=== PATIENT | female | born 1990 | race Caucasian/White ===

== ENCOUNTER 2016-04-07 18:31 | Emergency (ER) | payer SELFPAY ==
[2016-04-07] MEDS ORDERED: SULFAMETHOXAZOLE/TRIMETHOPRIM 1 TAB TABLET PO ONE (21:26)
[2016-04-07] MEDS ORDERED: oxyCODONE HCL/ACETAMINOPHEN 1 TAB TABLET PO ONE (21:28)
[2016-04-07] MEDS ORDERED: SULFAMETHOXAZOLE/TRIMETHOPRIM 1 TAB TABLET ONE (21:33)
[2016-04-07] MEDS ORDERED: oxyCODONE HCL/ACETAMINOPHEN 1 TAB TABLET ONE (21:33)
[2016-04-07 21:36] VITALS: BP 130/78
--- NOTE | 2016-04-07 21:48 | ERNOTE ---
Integumentary HPI - Narrative Date of Service: 04/07/16 - General Presenting Symptoms: abscess Time Seen by Provider: 04/07/16 21:11 Source: patient Exam Limitations: no limitations - Immun/Allergies/Home Medications Immunizations: IMMUNIZATION HX Immunizations Up to Date No History of Influenza Vaccine No Hx Pneumococcal Vaccination No Allergies/Adverse Reactions: Allergies Allergy/AdvReac Type Severity Reaction Status Date / Time adhesive Allergy Verified 04/07/16 20:13 Home Medications: HOME MEDICATIONS Multivitamin [Multiple Vitamins] 1 each PO DAILY 02/03/12 [Last Taken Unknown] Sulfamethoxazole/Trimethoprim [Bactrim Ds] 1 tab PO BID #28 tab 04/07/16 [Last Taken Unknown] oxyCODONE HCL/ACETAMINOPHEN [Percocet 5 MG/325 MG] 1 tab PO Q4H PRN #20 tab [Last Taken Unknown] - History of Present Illness Narrative: Pt. comes in with c/o Painful bump on her L flank that she noticed yesterday and thought that it was just a zit so her mom "popped" it and expressed purulent material and blood from the wound. Pt. denies any other prehospital treatment. Review of Systems - Review of Systems Constitutional: Present: no symptoms reported. Absent: recent illness, fever, chills, fatigue, malaise EYE: Present: no symptoms reported ENT: Present: no symptoms reported Respiratory: Present: no symptoms reported. Absent: shortness of breath, cough , wheezing Cardiology: Present: no symptoms reported. Absent: chest pain, palpitations, edema Gastrointestinal/Abdominal: Present: no symptoms reported. Absent: nausea, vomiting, diarrhea Genitourinary: Present: no symptoms reported Musculoskeletal: Present: no symptoms reported. Absent: back pain, joint pain Skin: Present: lumps - red painful lump Neurological: Present: no symptoms reported. Absent: headache, dizziness/light- headedness, numbness, tingling All Other Systems: All systems neg except as marked - Patient's Past Medical History Patient History - Medical: Migraines Patient History - Cardiac/Respiratory: No pertinent hx Patient History - Cancer: Ovarian Patient History - Surgical Procedures: T & A, Other Patient History - Other: None LMP (Calendar): 03/13/16 - Family History Mother Family History - Cardiac/Respiratory: Hypertension - Social History Living Situations: home Smoking Status: Current every day smoker Alcohol Use: occasionally Drug Use: none - Immunizations Immunizations Up to Date: No Hx Pneumococcal Vaccination: No History of Influenza Vaccine: No Physical Exam - Physical Exam General Appearance: Present: wd/wn, alert, no apparent distress Eye Exam: Normal inspection: bilateral, PERRL: bilateral, EOMI: bilateral Ears, Nose, Throat: Present: normal ENT inspection, hearing grossly normal, normal pharynx Neck: Present: normal inspection, nontender. Absent: lymphadenopathy (R), lymphadenopathy (L) Respiratory: Present: no respiratory distress, normal breath sounds, no accessory muscle use, chest nontender, lungs clear Cardiovascular/Chest: Present: regular rate, rhythm, no murmur, normal peripheral pulses Gastrointestinal/Abdominal: Present: normal bowel sounds, nontender, nondistended, soft, no organomegaly Back Exam: Present: normal inspection, normal range of motion, no CVA tenderness , no vertebral tenderness Extremity Exam: Present: normal inspection, non-tender, no edema, normal range of motion Neurological Exam: Present: alert, oriented, normal mood/affect, no motor/ sensory deficits Skin Exam: Present: normal color, warm/dry, other - abscess decompressed on R flank 0.5cm in diameter with 3cm of cellulitis surrounding. ED Progress - Date and Time Seen: Date and Time: 04/07/16 21:46 As abscess is already decompressed will treat cellulitis and educated pt. on followin g up to ensure that it does not return or worsen. - Vital Signs Patient's Vital Signs:: I have reviewed the patient's vital signs. Vital Signs: Vital Signs 04/07/16 20:08 Temperature 36.4 C L Pulse Rate 59 L Respiratory 18 Rate Blood Pressure 136/80 O2 Sat by Pulse 100 Oximetry - Progress/Reassessment Chief Complaint: Abscess Departure Clinical Impression: Abscess Cellulitis Qualifiers: Site of cellulitis: trunk Site of cellulitis of trunk: back Qualified Code(s): L03.312 - Cellulitis of back [any part except buttock] - Departure Disposition: Home self-care Condition: Good Instructions: Abscess, [id number], Cellulitis, Adult, [id number] Additional Instructions: Please follow up with primary provider in 2-3 days. Prescriptions: Sulfamethoxazole/Trimethoprim [Bactrim Ds] 1 tab PO BID #28 tab oxyCODONE HCL/ACETAMINOPHEN [Percocet 5 MG/325 MG] 1 tab PO Q4H PRN #20 tab PRN Reason: Pain
== END 2016-04-07 22:08 | disposition home or self-care (01) ==
LOC: ER 18:31
DX: L02.211 Cutaneous abscess of abdominal wall (principal); L03.312 Cellulitis of back [any part except buttock and flank]

== ENCOUNTER 2016-06-12 23:31 | Emergency (ER) | payer SELFPAY ==
[2016-06-13 00:14] VITALS: BP 113/68
[2016-06-13] MEDS ORDERED: ONDANSETRON 4 MG TAB.RAPDIS PO ONE (00:21)
[2016-06-13] MEDS ORDERED: KETOROLAC TROMETHAMINE 60 MG/2 ML VIAL IM ONE ×2 (00:22→00:26)
--- NOTE | 2016-06-13 00:25 | ERNOTE ---
Headache ER HPI - General Presenting Symptoms: headache Time Seen by Provider: 06/13/16 00:18 Source: patient Exam Limitations: no limitations - Immun/Allergies/Home Medications Immunizations: IMMUNIZATION HX Immunizations Up to Date Yes History of Influenza Vaccine Yes Hx Pneumococcal Vaccination No Allergies/Adverse Reactions: Allergies adhesive Allergy (Verified 06/13/16 00:14) Home Medications: HOME MEDICATIONS Multivitamin [Multiple Vitamins] 1 each PO DAILY 02/03/12 [Last Taken Unknown] Sulfamethoxazole/Trimethoprim [Bactrim Ds] 1 tab PO BID #28 tab 04/07/16 [Last Taken Unknown] oxyCODONE HCL/ACETAMINOPHEN [Percocet 5 MG/325 MG] 1 tab PO Q4H PRN #20 tab [Last Taken Unknown] - History of Present Illness Narrative: here for typical frontal headache and out of her meds. Admits to some photophobia and no vomiting but some nausea, Has no neck pain Review of Systems - Review of Systems Constitutional: Present: no symptoms reported EYE: Present: other - photophobia ENT: Present: no symptoms reported Respiratory: Present: no symptoms reported Cardiology: Present: no symptoms reported Gastrointestinal/Abdominal: Present: no symptoms reported Musculoskeletal: Present: no symptoms reported Neurological: Present: headache - bilateral, not worse ever. typical "migraine" - Patient's Past Medical History Patient History - Medical: Migraines Patient History - Cardiac/Respiratory: No pertinent hx Patient History - Cancer: Ovarian Patient History - Surgical Procedures: T & A, Other Patient History - Other: None LMP (Calendar): 03/13/16 - Family History Mother Family History - Cardiac/Respiratory: Hypertension - Social History Living Situations: home Abuse History: No History of abuse Psych History: No pertinent hx Smoking Status: Current every day smoker Patient requests Smoking Cessation Consult: No Initiate information on Smoking Cessation: No Alcohol Use: occasionally Drug Use: none - Immunizations Immunizations Up to Date: Yes Hx Pneumococcal Vaccination: No History of Influenza Vaccine: Yes Physical Exam - Physical Exam General Appearance: Present: wd/wn, alert, no apparent distress Eye Exam: Normal inspection: bilateral - photophobic but normal exam Ears, Nose, Throat: Present: normal ENT inspection Neck: Present: normal inspection, nontender, supple, full range of motion Respiratory: Present: no respiratory distress, normal breath sounds, no accessory muscle use, chest nontender, lungs clear Cardiovascular/Chest: Present: regular rate, rhythm, no murmur, normal peripheral pulses Back Exam: Present: normal inspection ED Progress - Vital Signs Patient's Vital Signs:: I have reviewed the patient's vital signs. Vital Signs: Vital Signs 06/13/16 00:10 Temperature 36.4 C L Pulse Rate 78 Respiratory 18 Rate Blood Pressure 113/68 O2 Sat by Pulse 97 Oximetry - Progress/Reassessment Chief Complaint: Headache Plan - Plan Plan: pt has a tension type headache since it is bilateral Departure Clinical Impression: Tension headache - Departure Disposition: Home self-care Condition: Good Instructions: Tension Headache, [id number]
[2016-06-13] MEDS ORDERED: ONDANSETRON 4 MG TAB.RAPDIS ONE (00:27)
--- OUTSIDE RECORDS SUMMARY | 2016-06-13 00:30 | XMS REPORT | Continuity of Care Document ---
:1990 Author Organization [facility] ([facility]) Address [address] [place] [address] Phone [phone] Care Team Providers Name Role Phone Provider, No-Primary Care Primary Care Provider Unavailable Source Comments This disclosure is being made pursuant to the Care Everywhere program, applicable federal and state laws, and may not contain all informaitonavailable regarding this patient.[facility] ([facility]) Active Allergies and Adverse Reactions Allergen Noted Date Severity Reactions Comments Adhesive 11/04/2011 Rash Current Medications No known medications Active Problems Problem Noted Date Encounter for follow-up surveillance of ovarian cancer 02/15/2016 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 Resolved Problems Problem Noted Date Resolved Date Groin pain 02/04/2012 08/15/2015 Ovarian mass 11/06/2011 02/15/2016 Social History Tobacco Use Types Packs/Day Years Used Date Current Every Day Smoker Cigarettes 0.25 5 Smokeless Tobacco: Never Used Tobacco Cessation:Ready to Quit: No Comments: Alcohol Use Drinks/Week oz/Week Comments Yes not often Last Filed Vital Signs Vital Sign Reading Time Taken Blood Pressure 109/69 02/13/2016 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 Pulse 70 02/13/2016 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 Temperature 36.8 C (98.2 F) 02/13/2016 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 Respiratory Rate 16 02/13/2016 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 Height 1.7 m (5' 6.93") 08/15/2015 2:05 PM CDT Weight 110.75 kg (244 lb 2.6 oz) 02/13/2016 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 Body Mass Index 38.32 02/13/2016 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 Oxygen Saturation 97% 02/13/2016 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 Plan of Care Date Type Specialty Providers Description 08/13/2016 Appointment [facility] FrostJ[facility] MD [address] [place] [phone] (Fax) Chief Comp: Patient Clinic, [facility] Provider Reported Reason For Visit Health Maintenance Due Date Last Done Comments Hepatitis B Vaccine (1 of 3 - Primary 1988 Series) Tdap Vaccine 11/22/1999 Lipid Disorder Screening 2006 MMR Vaccine 2006 Td Vaccine 2006 Varicella Vaccine (1 of 2 - Adult - No 2006 Evidence of Immunity) Pneumococcal Vaccine (1 of 3 - PCV13) 11/22/2007 Influenza Vaccine: Seasonal (#1) 10/08/2015 Cervical Cancer Screening 05/02/2016 05/02/2013, 04/27/2012 Results from Last 3 Months Not on file
== END 2016-06-13 00:30 | disposition home or self-care (01) ==
LOC: ER 23:31
DX: G44.209 Tension-type headache, unspecified, not intractable (principal); F17.210 Nicotine dependence, cigarettes, uncomplicated

== ENCOUNTER 2017-06-08 06:02 | Observation (INO) ==
[2017-06-08] MEDS ORDERED: DIATRIZOATE MEGLUMINE, SODIUM 30 ML BTL PO ONE (06:20)
[2017-06-08] MEDS ORDERED: ONDANSETRON HCL/PF 2 MG/ML VIAL IV ONE ×3 (06:20→16:41)
[2017-06-08] MEDS ORDERED: KETOROLAC TROMETHAMINE 30 MG/ML VIAL IV ONE (06:20)
[2017-06-08] MEDS ORDERED: KETOROLAC TROMETHAMINE 30 MG/ML VIAL ONE (06:21)
[2017-06-08] MEDS ORDERED: ONDANSETRON HCL/PF 2 MG/ML VIAL ONE (06:21)
[2017-06-08] MEDS ORDERED: DIATRIZOATE MEGLUMINE, SODIUM 30 ML BTL ONE (06:21)
--- NOTE | 2017-06-08 06:24 | ERNOTE ---
<Zohreh Bone - Last Filed: 06/08/17 07:53> Abdominal HPI - General Time Seen by Provider: 06/08/17 06:05 Source: patient - Immun/Allergies/Home Medications Immunizatons: IMMUNIZATION HX Immunizations Up to Date Yes History of Influenza Vaccine Yes Hx Pneumococcal Vaccination No Allergies/Adverse Reactions: Allergies adhesive Allergy (Verified 06/13/16 00:14) Home Medications: HOME MEDICATIONS NK [No Home Medication] 06/08/17 [Last Taken Unknown] - History of Present Illness Narrative: Patient started last night to have mid to right lower abdominal pain, vomiting and subjective fever. Pain is worse wit movement and breathing. She has a history of right ovarian cancer treated with surgery only in 2011, still has her appendix. Date (Duration): 06/07/17 Time (Timing): 18:00 Timing: constant, getting worse Quality: severe, sharpness Activities at Onset: none Modifying Factors - (Worsens): Present: breathing, movement Associated Symptoms: Present: nausea, vomiting. Absent: shortness of breath Prior Abdominal Problems: Present: none Prior Treatment: Absent: recently seen, currently on antibiotics Review of Systems - Review of Systems Constitutional: Present: fever - subjective, chills. Absent: recent illness ENT: Absent: nose congestion, nasal drainage, sore throat Respiratory: Absent: shortness of breath Cardiology: Absent: chest pain Gastrointestinal/Abdominal: Present: See HPI, nausea, vomiting, constipation, abdominal pain. Absent: diarrhea Genitourinary: Present: no symptoms reported. Absent: frequency, dysuria Skin: Absent: rash Neurological: Absent: headache - Patient's Past Medical History Patient History - Medical: Migraines Patient History - Cardiac/Respiratory: No pertinent hx Patient History - Cancer: Ovarian Patient History - Surgical Procedures: Cancer Surgery, T & A, Other Patient History - Other: None - Family History Mother Family History - Cardiac/Respiratory: Hypertension Grandmother-Maternal Family History - Medical: No pertinent hx Family History - Cardiac/Respiratory: No pertinent hx Family History - Cancer: No pertinent family hx - Social History Abuse History: No History of abuse Psych History: No pertinent hx Smoking Status: Never smoker Alcohol Use: none Drug Use: none - Immunizations Immunizations Up to Date: Yes Hx Pneumococcal Vaccination: No History of Influenza Vaccine: Yes Physical Exam - Physical Exam General Appearance: Present: wd/wn, alert, mild distress, anxious Respiratory: Present: no respiratory distress, normal breath sounds, no accessory muscle use, lungs clear Cardiovascular/Chest: Present: regular rate, rhythm, no murmur Gastrointestinal/Abdominal: Present: normal bowel sounds, nondistended, soft, tenderness - RLQ, guarding, McBurney sign, Obturator sign, Psoas sign Neurological Exam: Present: alert, oriented, normal mood/affect Skin Exam: Present: normal color, warm/dry ED Progress - Results and Orders Patient's Lab Results:: I have reviewed the patient's lab results. - Vital Signs Patient's Vital Signs:: I have reviewed the patient's vital signs. - Progress/Reassessment Progress Note-Subjective: 06/08/17 06:50 pain improved and tolerable, tolerating contrast - Transfer of Care Physician Sign Out: Zohreh Bone Receiving Physician: Antonio Wagner Pending Results: CT/MRI results Departure Clinical Impression: Appendicitis - Departure Disposition: Still a patient Condition: Good <Antonio Wagner - Last Filed: 06/08/17 09:40> Abdominal HPI - Immun/Allergies/Home Medications Immunizatons: IMMUNIZATION HX Immunizations Up to Date Yes History of Influenza Vaccine Yes Hx Pneumococcal Vaccination No ED Progress - Date and Time Seen: Date and Time: 06/08/17 09:38 condition unchanged, case discussed with dr araujo who evaluates patient for admission with acute appendicitis, to be admitted - Results and Orders Patient's Lab Results:: I have reviewed the patient's lab results. - Vital Signs Patient's Vital Signs:: I have reviewed the patient's vital signs. Vital Signs: Vital Signs 06/08/17 06/08/17 06/08/17 06:10 06:18 06:45 Temperature 36.7 C 36.7 C 36.5 C Pulse Rate 90 90 66 Respiratory 16 16 18 Rate Blood Pressure 125/69 125/69 112/75 O2 Sat by Pulse 100 100 98 Oximetry - CT/Ultrasound CT/Ultrasound Narrative: ct abdomen acute appendicitis - Transfer of Care Expected Disposition: Admit
[2017-06-08 06:32] LABS: Hematocrit 41.5 % (37.0-47.0); Hemoglobin 14.1 gm/dL (12.5-16.0); Mean Cell Volume 88.9 fl (78-100); Mean Corpuscular Hemoglobin 30.2 pg (27-31); Neutrophil # 12.9 K/mm3 (1.3-6.0); Neutrophil % 80.5 % (42-75.0); Platelet Count 275 K/mm3 (150-450); Red Blood Count 4.67 M/mm3 (4.2-5.4); Red Cell Distribution Width 12.2 % (11.5-14.0)
[2017-06-08 06:46] LABS: Albumin * 3.8 gm/dl (3.4-5.0); Anion Gap 12.5 mmol/L (6.8-13.8); BUN/Creatinine Ratio 13.9 (9.0-21.6); Bilirubin, Total 0.6 mg/dL (0.0-1.1); Ca. Corrected For Albumin 8.6 mg/dL (8.4-10.2); Calcium * 8.8 mg/dL (7.9-10.9); Carbon Dioxide 28.6 mmol/L (24-32.6); Potassium 4.1 mmol/L (3.4-4.6); Total Protein 7.2 gm/dL (6.2-8.2)
[2017-06-08 08:44] LABS: Urine Bilirubin Negative (NEGATIVE); Urine Blood Negative /ul (NEGATIVE); Urine Ketone Negative (NEGATIVE); Urine Nitrite Negative (NEGATIVE); Urine Protein Negative (NEGATIVE); Urine Urobilinogen Normal (NORMAL)
[2017-06-08 08:58] LABS: Urine Appearance Clear (CLEAR); Urine Color Yellow; Urine RBC None Seen /hpf (0-5); Urine WBC None Seen /hpf (0-5)
[2017-06-08 08:59] LABS: Urine Bacteria 1+
[2017-06-08] MEDS ORDERED: ceFAZolin SODIUM/DEXTROSE,ISO 2 GM/50 ML BAG IV ONE (09:44)
[2017-06-08] MEDS ORDERED: LEVOFLOXACIN IN DEXTROSE 5 % 750 MG/150 ML BAG IV ONE (09:45)
[2017-06-08] MEDS ORDERED: metroNIDAZOLE/SODIUM CHLORIDE 500 MG/100 ML BAG IV SCH ×3 (09:45→19:00)
[2017-06-08] MEDS: RINGER'S SOLUTION,LACTATED 1,000 ML IV PRN ×2 (10:31→17:03)
--- NOTE | 2017-06-08 10:55 | HP ---
Chief Complaint - Chief Complaint Date of Service: 06/08/17 Time of Service: 10:50 Chief Complaint: RLQ abdominal pain History of Present Illness: Pt presented to ER with onset of RLQ abdominal pain at 6P last night that was associated with significant vomiting. ER FUNEZ shows WBC of 16K and CT c/w uncomplicated acute appendicitis. - Patient's Past Medical History Patient History - Medical: Migraines Patient History - Cardiac/Respiratory: No pertinent hx Patient History - Cancer: Ovarian Patient History - Surgical Procedures: Cancer Surgery, T & A, Other Patient History - Other: None LMP (females 10-50): unknown - Family History Grandmother-Maternal Family History - Medical: No pertinent hx Family History - Cardiac/Respiratory: No pertinent hx Family History - Cancer: No pertinent family hx Mother Family History - Medical: No pertinent hx Family History - Cardiac/Respiratory: Hypertension Family History - Cancer: No pertinent family hx - Social History Living Situations: parents Abuse History: No History of abuse Psych History: No pertinent hx Smoking Status: Never smoker Have you smoked in the past 12 months: Yes Do you dip or chew tobacco: No Patient requests Smoking Cessation Consult: No Initiate information on Smoking Cessation: No Alcohol Use: none Drug Use: none - Immunizations Immunizations Up to Date: Yes Hx Pneumococcal Vaccination: No History of Influenza Vaccine: Yes Review Of Systems (GEN) - Review of Systems Abdominal: Present: Vomiting Misc: All systems neg except as marked Immunizations: IMMUNIZATION HX Immunizations Up to Date Yes History of Influenza Vaccine Yes Hx Pneumococcal Vaccination No Allergies/Adverse Reactions: Allergies Allergy/AdvReac Type Severity Reaction Status Date / Time adhesive Allergy Verified 06/13/16 00:14 Home Medications: HOME MEDICATIONS NK [No Home Medication] 06/08/17 [Last Taken Unknown] Exam - Exam Vital Signs: Vital Signs - Last Taken Temp 36.6 C 06/08/17 07:30 Pulse 77 06/08/17 07:30 Resp 18 06/08/17 06:45 BP 121/69 06/08/17 07:30 Pulse Ox 97 06/08/17 07:30 Constitutional: Present: Alert, Oriented x3, Cooperative, Well developed, Well nourished, No distress ENT Exam: Present: normal ENT inspection Eye Exam: bilateral eye: normal inspection Neck: Present: non-tender, full range of motion, trachea midline. Absent: lymphadenopathy (R), lymphadenopathy (L) Respiratory: Present: normal breath sounds, no respiratory distress, no accessory muscle use Cardiovascular/Chest: Present: regular rate, rhythm, no murmur Abdomen: Present: Normal bowel sounds, tender - RLQ Extremity: Present: normal inspection Skin Exam: Present: normal color, warm/dry Neurologic: Present: no motor/sensory deficits Appearance: Present: appropriate appearance, appropriate insight Eye contact: Present: cooperative, good eye contact Thoughts: Present: normal thought pattern Diagnostic Studies: Abnormal Lab Results 06/08/17 06/08/17 Range/Units 06:25 07:57 WBC 16.0 H (4.0-10.5) K/mm3 Immature Gran # (Auto) 0.05 H (0.000-0.0310) K/mm3 Neutrophils % 80.5 H (42-75.0) % Lymphocytes % 12.5 L (20-51) % Neutrophils # 12.9 H (1.3-6.0) K/mm3 Ur Epithelial Cells 5-10 H (0-5) /hpf Urine Bacteria 1+ H (NONE) Laboratory Results WBC 16.0 K/mm3 (4.0-10.5) H 06/08/17 06:25 RBC 4.67 M/mm3 (4.2-5.4) 06/08/17 06:25 Hgb 14.1 gm/dL (12.5-16.0) 06/08/17 06:25 Hct 41.5 % (37.0-47.0) 06/08/17 06:25 MCV 88.9 fl (78-100) 06/08/17 06:25 MCH 30.2 pg (27-31) 06/08/17 06:25 MCHC 34.0 g/dl (32-36) 06/08/17 06:25 RDW 12.2 % (11.5-14.0) 06/08/17 06:25 Plt Count 275 K/mm3 (150-450) 06/08/17 06:25 MPV 9.0 fl (6.0-9.5) 06/08/17 06:25 Immature Gran % (Auto) 0.30 % (0.001-0.429) 06/08/17 06:25 Immature Gran # (Auto) 0.05 K/mm3 (0.000-0.0310) H 06/08/17 06:25 Neutrophils % 80.5 % (42-75.0) H 06/08/17 06:25 Lymphocytes % 12.5 % (20-51) L 06/08/17 06:25 Monocytes % 5.4 % (0.0-9) 06/08/17 06:25 Eosinophils % 0.8 % (0.0-3.0) 06/08/17 06:25 Basophils % 0.5 % (0.0-1.0) 06/08/17 06:25 Nucleated RBC % 0.0 k/mm3 (0-1) 06/08/17 06:25 Neutrophils # 12.9 K/mm3 (1.3-6.0) H 06/08/17 06:25 Lymphocytes # 2.00 k/mm3 (1.5-3.5) 06/08/17 06:25 Monocytes # 0.9 k/mm3 (0.0-1.0) 06/08/17 06:25 Eosinophils # 0.1 k/mm3 (0.0-0.7) 06/08/17 06:25 Absolute Basophils 0.1 k/mm3 (0.0-0.1) 06/08/17 06:25 Sodium 139 mmol/L (132-142) 06/08/17 06:25 Plasma Sodium 139 mmol/L (130-142) 06/08/17 06:25 Potassium 4.1 mmol/L (3.4-4.6) 06/08/17 06:25 Chloride 102 mmol/L (97-106) 06/08/17 06:25 Carbon Dioxide 28.6 mmol/L (24-32.6) 06/08/17 06:25 Anion Gap 12.5 mmol/L (6.8-13.8) 06/08/17 06:25 BUN 10 mg/dL (3-23) 06/08/17 06:25 Creatinine 0.72 mg/dL (0.4-1.4) 06/08/17 06:25 Est GFR (Non-Af Amer) 103 mL/min (60-130) 06/08/17 06:25 BUN/Creatinine Ratio 13.9 (9.0-21.6) 06/08/17 06:25 Random Glucose 106 mg/dL (70-110) 06/08/17 06:25 Calcium 8.8 mg/dL (7.9-10.9) 06/08/17 06:25 Calcium Adj for Albumin 8.6 mg/dL (8.4-10.2) 06/08/17 06:25 Total Bilirubin 0.6 mg/dL (0.0-1.1) 06/08/17 06:25 AST 16 U/L (0-48) 06/08/17 06:25 ALT 45 U/L (19-67) 06/08/17 06:25 Alkaline Phosphatase 63 U/L (50-170) 06/08/17 06:25 Total Protein 7.2 gm/dL (6.2-8.2) 06/08/17 06:25 Albumin 3.8 gm/dl (3.4-5.0) 06/08/17 06:25 Amylase 35 U/L (25-115) 06/08/17 06:25 Lipase 80 U/L (73-393) 06/08/17 06:25 Serum HCG, Qual Negative (NEGATIVE) 06/08/17 06:25 Urine Color Yellow 06/08/17 07:57 Urine Appearance Clear (CLEAR) 06/08/17 07:57 Urine pH 7.0 pH (5.0-7.0) 06/08/17 07:57 Ur Specific Jermyn 1.010 SP.GR. (1.005-1.010) 06/08/17 07:57 Urine Protein Negative mg/dL (NEGATIVE) 06/08/17 07:57 Urine Glucose (UA) Negative mg/dL (NEGATIVE) 06/08/17 07:57 Urine Ketones Negative mg/dL (NEGATIVE) 06/08/17 07:57 Urine Blood Negative /ul (NEGATIVE) 06/08/17 07:57 Urine Nitrate Negative (NEGATIVE) 06/08/17 07:57 Urine Bilirubin Negative mg/dl (NEGATIVE) 06/08/17 07:57 Urine Urobilinogen Normal EU/dl (NORMAL) 06/08/17 07:57 Ur Leukocyte Esterase Negative /ul (NEGATIVE) 06/08/17 07:57 Urine RBC None seen /hpf (0-5) 06/08/17 07:57 Urine WBC None seen /hpf (0-5) 06/08/17 07:57 Ur Epithelial Cells 5-10 /hpf (0-5) H 06/08/17 07:57 Urine Bacteria 1+ (NONE) H 06/08/17 07:57 Urine Culture Comments No culture indicated 06/08/17 07:57 Assessment/Plan - Assessment/Plan (1) Appendicitis Assessment: A: Acute appendicitis, nonperforated P: Recommend laparoscopic appendectomy. The options, risks, and benefits of the procedure were reviewed fully. She seems to understand, asks appropriate questions, and desires to proceed. Problem: Acute
[2017-06-08] MEDS ORDERED: MORPHINE SULFATE 2 MG/ML DISP.SYRIN IV PRN ×2 (14:08→16:41)
[2017-06-08] MEDS ORDERED: RINGER'S SOLUTION,LACTATED 1,000 ML IV ONE ×3 (14:35→16:29)
[2017-06-08] MEDS ORDERED: BUPIVACAINE HCL/EPINEPHRINE 50 ML VIAL IJ ONE ×2 (15:05)
[2017-06-08] MEDS ORDERED: HYDROmorphone HCL 2 MG/ML VIAL IV ONE (16:10)
[2017-06-08] MEDS ORDERED: DEXAMETHASONE SODIUM PHOSPHATE 10 MG/ML VIAL IV ONE (16:27)
--- NOTE | 2017-06-08 16:36 | OR ---
Operative Report - Dictated Report Narrative: Date: 06/08/2017 Preoperative diagnosis: Acute appendicitis, nonperforated Postoperative diagnosis: Same Procedure: Laparoscopic appendectomy Staff surgeon: Aiden Huerta MD Anesthesia: Gen. endotracheal EBL: Minimal Specimens: Appendix Complications: During the course of the procedure the left arm board detached from the bed. There did not appear to be any untoward injury to the left upper extremity upon examination in the recovery room. Procedure: Following the smooth induction of general endotracheal anesthesia. SCD boots were applied and a Koehler catheter was inserted and the abdomen was prepped and draped in a sterile fashion. All port sites were anesthetized with Marcaine prior to incision. A 5 mm infraumbilical incision was carried out and blunt dissection was taken down to the anterior abdominal wall. A perforating towel clip was placed through the umbilical raphe for counter traction. The abdomen was entered under direct vision with a 5 mm blunt port with the scope within the lumen of the trocar. The abdomen was then insufflated to a pressure of 15 mmHg with carbon dioxide. Under direct vision a 12 mm suprapubic blunt port and left lower quadrant 5 mm blunt port were inserted. There was no purulence and no reactive fluid seen within the abdominal cavity or pelvis. There was one small string-like adhesion to the anterior lower midline abdominal wall that was taken down with blunt dissection. The appendix was draped over the iliac vessels and adherent to a previous oophorectomy site. The mesoappendix was windowed at the base of the appendix. The base of the appendix was then transected with an Endo MELISSA stapling gun. The appendix was then taken down from the base to the tip using a thunderbeat. The adhesions to the lateral pelvic wall were taken down with blunt dissection. The appendix was then delivered into the lumen of the 12 mm port and this port was then removed. The subcutaneous tissue at this port site was irrigated with Betadine solution. Hemostasis appeared to be adequate. The pneumoperitoneum was evacuated and the remainder of the ports were removed. The incisions were closed with subcuticular stitches of 4-0 Vicryl and then sealed with Dermabond. The patient tolerated the procedure well without apparent complications and was discharged from the operating room in stable condition.
[2017-06-08] MEDS ORDERED: RINGER'S SOLUTION,LACTATED 1,000 ML IV PRN (16:41)
[2017-06-08] MEDS ORDERED: oxyCODONE HCL/ACETAMINOPHEN 1 TAB TABLET PO PRN (16:41)
--- NOTE | 2017-06-08 16:41 | DS ---
(1) Appendicitis Problem: Resolved Qualifiers: Acute appendicitis type: with localized peritonitis Description of Stay: Pt presented to ER with signs and symptoms c/w acute appendicitis with WBC 16K and CT showing uncomplicated appendicitis. She was admitted, hydrated, given IV antibiotics and underwent same day laparoscopic appendectomy. She tolerated the procedure well without apparent complications and was discharged later that day in good condition. She is to follow-up in 1 week for postop evaluation. She is not to lift more than 20 lb x 1 week. Diet is regular. Pt may shower. Procedures Performed: see notes below List Procedures: laparoscopic appendectomy Discharge Location: Home Disposition: Home self-care Condition: Good Discharge Activity: No Lifting - Nothing > 20 lb x 1 week Discharge Diet: General/regular food Complete Home Medications List: Complete Home Medication List: NK [No Home Medication] 06/08/17
[2017-06-08] MEDS ORDERED: METOCLOPRAMIDE HCL 5 MG/ML VIAL IV ONE (19:00)
[2017-06-08 23:57] VITALS: BP 112/63
== END 2017-06-08 23:59 | disposition home or self-care (01) ==
LOC: ER 06:02 → MS 11:05 → INTOOBSV 11:05
PROVIDERS: ADMIT Specialist; ATTEND Specialist
DX: K35.3 Acute appendicitis with localized peritonitis; Z85.43 Personal history of malignant neoplasm of ovary
CPT/HCPCS: 36415; 74177; 80053; 81001; 82150; 83690; 84703; 85025; 88304; 96365; 96366; 96367; 96375; 99284; G0378; J2405